=== PATIENT | female | born 2000 | race Two or more races ===

== ENCOUNTER 2024-09-06 18:01 | Inpatient (IN) | payer OTHER ==
[~2024-09-06] VITALS: Ht 167.6 cm; Wt 90.7 kg
[2024-09-06 17:04] VITALS: BP 129/81
[2024-09-06] MEDS ORDERED: RINGERS SOLUTION,LACTATED 1,000 ML IV SCH (18:15)
[2024-09-06] MEDS ORDERED: MISOPROSTOL 50 MCG TABLET VAG ONE (18:15)
[2024-09-06 18:40] LABS: HEMATOCRIT 39.1 % (36.0-45.00); HEMOGLOBIN 13.9 g/dL (12.0-15.00); MEAN CELL VOLUME 90.3 fL (80.00-100.00); MEAN CORPUSCULAR HGB CONC 35.5 g/dl (32.0-36.0); PLATELET COUNT 286 K/uL (150-450); RED BLOOD COUNT 4.33 M/uL (4.00-6.00); RED CELL DISTRIBUTION WIDTH 13.4 % (11.5-14.5)
[2024-09-06 18:56] LABS: INR < 0.93; PARTIAL THROMBOPLASTIN TIME 27.9 SECONDS (22.0-34.0); PROTHROMBIN TIME 10.2 SECONDS (9.0-11.5)
[2024-09-06 19:01] LABS: ALBUMIN 2.6 gm/dL (3.4-5.0); BILIRUBIN TOTAL 0.56 mg/dL (0.3-1.2); CALCIUM 9.6 mg/dL (8.5-10.1); CREATININE SERUM 0.54 mg/dL (0.55-1.02); GFR 137.55; GLOBULINA 3.1 G/DL (2.4-3.5); POTASSIUM 4.01 mEq/L (3.5-5.1); TOTAL PROTEIN 5.7 gm/dL (6.4-8.2)
[2024-09-06 23:35] VITALS: BP 117/62
[2024-09-07] MEDS ORDERED: MEPERIDINE HCL/PF 25 MG/ML VIAL IV ONE
[2024-09-07] MEDS ORDERED: PROMETHAZINE HCL 25 MG/ML AMPUL IV ONE
[2024-09-07] MEDS ORDERED: MEPERIDINE HCL 25 MG/ML AMPUL IV PRN (00:55)
[2024-09-07] MEDS ORDERED: PROMETHAZINE HCL 25 MG/ML AMPUL IV PRN (00:55)
[2024-09-07 06:27] VITALS: BP 112/63
[2024-09-07 06:31] VITALS: BP 119/69
[2024-09-07 06:45] VITALS: BP 122/81
[2024-09-07] MEDS ORDERED: OXYTOCIN 1,000 ML IV ONE (07:00)
[2024-09-07] MEDS ORDERED: CHLORHEXIDINE GLUCONATE 120 ML BOTTLE TOP ONE (07:00)
[2024-09-07] MEDS ORDERED: LIDOCAINE HCL 1% 10ML VIAL IJ ONE (07:00)
[2024-09-07] MEDS ORDERED: ERYTHROMYCIN BASE OPHT 1GM EACH TUBE OP ONE (07:00)
[2024-09-07 07:46] VITALS: BP 119/61
[2024-09-07] MEDS ORDERED: IBUprofen 600 MG TABLET PO SCH (08:00)
[2024-09-07 10:30] VITALS: BP 109/69
[2024-09-07 16:20] VITALS: BP 104/64
[2024-09-08] VITALS: BP 103/66
[2024-09-08 08:44] VITALS: BP 100/60
[2024-09-08 10:40] LABS: HEMATOCRIT 36.9 % (36.0-45.00); HEMOGLOBIN 12.8 g/dL (12.0-15.00); MEAN CELL VOLUME 92.2 fL (80.00-100.00); MEAN CORPUSCULAR HGB CONC 34.8 g/dl (32.0-36.0); PLATELET COUNT 299 K/uL (150-450); RED CELL DISTRIBUTION WIDTH 13.6 % (11.5-14.5)
[2024-09-08 17:11] VITALS: BP 114/69
[2024-09-09 01:00] VITALS: BP 111/76
== END 2024-09-09 13:23 | disposition home or self-care (01) | DRG 807 ==
LOC: LDR 18:01 → OB/GYN 18:01 → LDR 09-07 00:18 → OB/GYN 09-07 09:21
PROVIDERS: Obstetrics & Gynecology; ADMIT Specialist; ATTEND Specialist
PROC: 3E0P7VZ Introduction of Hormone into Female Reproductive, Via Natural or Artificial Opening (ICD-10-PCS; 2024-09-06)
PROC: 4A1HXCZ Monitoring of Products of Conception, Cardiac Rate, External Approach (ICD-10-PCS; 2024-09-06)
PROC: 10E0XZZ Delivery of Products of Conception, External Approach (ICD-10-PCS; principal; 2024-09-07)
PROC: 0KQM0ZZ Repair Perineum Muscle, Open Approach (ICD-10-PCS; 2024-09-07)
PROC: 3E033VJ Introduction of Other Hormone into Peripheral Vein, Percutaneous Approach (ICD-10-PCS; 2024-09-07)
DX: O70.1 Second degree perineal laceration during delivery (principal); Z37.0 Single live birth; Z3A.38 38 weeks gestation of pregnancy; Z20.822 Contact with and (suspected) exposure to COVID-19